=== PATIENT | male | born 1945 ===

== ENCOUNTER 2024-12-22 05:45 | Day surgery (SDC) | payer MEDICARE, OTHER, SELFPAY ==
--- NOTE | 2024-12-08 10:06 | CM ---
Cm reviewed medical records. Patient lives in [facility] in the [facility], but will stay with his daughter post operatively for about a month. Patient has had a history of VN, but is currently not on service. Patient is does not have a SNF history.
Patient has a PCP that he is active with. Patient plans to use [facility] for medication services.
Patient does have a walker. CM encouraged patient to review the packet from [facility] regarding required DME equipment. Patient will review.
CM was advised regarding home care post operatively.
Patient's daughter will be his contact and transportation home post operatively.
PLAN: Home with daughter,
--- NOTE | 2024-12-08 12:07 | VNURNOTE ---
Patient is scheduled for an elective R TKA on 12/22 - he is a same day patient with Dr Snow. Spoke with patient prior to surgery. Introduced role of [facility] Liaison. Patient reports that he will be staying at his daughter Roma's house in [place]
for recovery. It is a MULTI story home.
There are 0 steps to enter.
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 He has a rolling walker.
PCP is Dr Dominguez Beltran
Discussed [facility] joint protocol and post surgical plans.
Reviewed that he will have VN services initially and will then start outpatient PT.
Patient selects [facility] for his home care needs and will go to outpatient PT. Scheduled for 12/25.
Confirmed daughter Roma cell #.
Patient is in agreement with plan and states that his daughter will be home with him. Advised to bring RW with him day of surgery. Referral placed in [facility].
Plan: [facility] per [facility] joint protocol then outpt PT on 12/25.
[2024-12-10 10:55] VITALS: BMI 28.1
[2024-12-10 11:22] LABS: Hematocrit 42.5 % (39.0-52.0); Hemoglobin 14.5 g/dL (13.0-18.0); Mean Corp Hgb Conc. 34.1 g/dL (33.0-37.0); Mean Corpuscular Volume 99.5 fL (80.0-94.0); Platelet Count 255 10^3/uL (130-400); Red Cell Dist. Width 12.2 % (11.5-14.5)
[2024-12-10 11:58] LABS: ALT (SGPT) 24 U/L (0-50); AST (SGOT) 27 U/L (17-59); Albumin 4.6 g/dl (3.5-5.0); Alkaline Phosphatase 72 U/L (38-126); Blood Urea Nitrogen 20 mg/dl (9-20); Calcium 9.5 mg/dl (8.4-10.2); Carbon Dioxide 23 mmol/L (22-30); Chloride 106 mmol/L (98-107); Estimated Creatinine Clearance 54 ml/min; Glucose 142 mg/dl (70-99); Potassium 4.3 mmol/L (3.5-5.1); Sodium 140 mmol/L (135-145); Total Protein 7.7 g/dl (6.3-8.2); eGFR > 60.00
[2024-12-10 13:02] LABS: Glycohemoglobin (HgbA1c) 5.5 % (4.0-5.6)
[2024-12-10 14:18] VITALS: BMI 28.1
--- NOTE | 2024-12-18 12:36 | VNURNOTE ---
Rec'ed call from patient that he will be staying at a different address post-op. Address is [address] [place]
He confirms that he has a rolling walker, aware to bring it day of surgery. His friend is retired nurse and will be helping him at address above.
[facility] referral updated.
[2024-12-22] VITALS (9 sets, daily range): BP systolic 111–151; BP diastolic 70–96; BMI 28.1
[2024-12-22] MEDS: TYLENOL 650 MG PO (06:32)
[2024-12-22] MEDS: NORMOSOL-R/PLASMALYTE-A 1000 IV ×2 (06:33→10:21)
--- NOTE | 2024-12-22 07:24 | W.DS.TRANS ---
DC Summary - [employer] Pump T[employer]
-
Discharge Instructions:
Sleep Apnea Risk Intermediate
Discharge Diagnosis/Procedures R TKA Dr. Snow 12/22/24
Diet As tolerated
Activity With Walker
Driving Restrictions No driving
Bathing Restrictions OK to Shower
Other Services PT
Instructions:
Stand-Alone Forms: SDS Total Hip and Knee D/C
Changes to Home Medications: Yes
Discharge Medications:
DC Medications w/original date entered in [employer]
Glucosamine 1 dose PO DAILY 12/09/24
Held on 12/22/24. Instructions: Resume on 12/30/24.
allopurinol 100 mg tablet 400 mg PO .4-5 TIMES A WEEK 12/09/24
amlodipine 2.5 mg tablet 2.5 mg PO DAILY 12/09/24
dexamethasone 4 mg tablet 4 mg PO BID Anti-inflammatory #7 tabs 12/10/24
famotidine 20 mg tablet (Pepcid) 20 mg PO HS #30 tabs 12/10/24
gabapentin 300 mg capsule 300 mg PO HS neuropathic pain/sleep #10 caps 12/10/24
mupirocin 2 % topical ointment 1 applic intranasal BID #1 tube 12/10/24
ondansetron HCl 4 mg tablet 4 mg PO Q6H PRN nausea and vomiting #30 tabs 12/10/24
oxycodone 5 mg tablet 5 - 10 mg (1 - 2 x 5 mg) PO Q6H PRN moderate-severe pain #18 tabs 12/11/24
acetaminophen 500 mg tablet (Tylenol Extra Strength) 1,000 mg (2 x 500 mg) PO QID #0 tabs 12/22/24
aspirin 325 mg tablet 325 mg PO DAILY blood clot prevention #1 tab 12/22/24
docusate sodium 100 mg capsule (Colace) 100 mg PO BID stool softner #1 cap 12/22/24
magnesium hydroxide 400 mg/5 mL oral suspension (Milk of Magnesia) 30 ml PO HS PRN constipation #1 mL 12/22/24
sennosides 8.6 mg tablet (Senokot) 17.2 mg (2 x 8.6 mg) PO BID laxative #2 tabs 12/22/24
Home Medication Changes
dexamethasone 4 mg tablet 4 mg PO BID Anti-inflammatory #7 tabs 12/10/24
famotidine 20 mg tablet (Pepcid) 20 mg PO HS #30 tabs 12/10/24
gabapentin 300 mg capsule 300 mg PO HS neuropathic pain/sleep #10 caps 12/10/24
mupirocin 2 % topical ointment 1 applic intranasal BID #1 tube 12/10/24
ondansetron HCl 4 mg tablet 4 mg PO Q6H PRN nausea and vomiting #30 tabs 12/10/24
oxycodone 5 mg tablet 5 - 10 mg (1 - 2 x 5 mg) PO Q6H PRN moderate-severe pain #18 tabs 12/11/24
acetaminophen 500 mg tablet (Tylenol Extra Strength) 1,000 mg (2 x 500 mg) PO QID #0 tabs 12/22/24
aspirin 325 mg tablet 325 mg PO DAILY blood clot prevention #1 tab 12/22/24
docusate sodium 100 mg capsule (Colace) 100 mg PO BID stool softner #1 cap 12/22/24
magnesium hydroxide 400 mg/5 mL oral suspension (Milk of Magnesia) 30 ml PO HS PRN constipation #1 mL 12/22/24
sennosides 8.6 mg tablet (Senokot) 17.2 mg (2 x 8.6 mg) PO BID laxative #2 tabs 12/22/24
Pending Results: No
[2024-12-22] MEDS: ANCEF 5 IV (11:00)
[2024-12-22] MEDS: CYKLOKAPRON 650 MG PO (11:34)
== END 2024-12-22 11:50 | disposition home or self-care (01) ==
LOC: SDS 05:45
PROVIDERS: ATTENDING PHYSICIAN Specialist; FAMILY PHYSICIAN Family Medicine; OTHER PHYSICIAN Physician Assistant; REFERRING PHYSICIAN Internal Medicine Cardiovascular Disease
DX: M17.0 Bilateral primary osteoarthritis of knee (principal)
CPT/HCPCS: 27447; 36415; 73560; 80053; 83036; 85027; 87070; 97162; C1713; C1776